=== PATIENT | female | born 1985 | race Caucasian/White ===

== ENCOUNTER 2016-09-06 18:12 | Emergency (ER) | payer SELFPAY ==
[~2016-09-06] VITALS: Ht 157.5 cm; Wt 74.5 kg
[~2016-09-06 18:12] MED LIST: FOLI-49 PO; PREN1TAB49 PO
[2016-09-06 18:19] VITALS: Ht 157.5 cm; Wt 74.5 kg
[2016-09-06] MEDS ORDERED: IBUPROFEN 600 MG TAB PO ONE (20:00)
[2016-09-06] MEDS ORDERED: DIAZEPAM 5 MG TAB PO ONE (20:00)
[2016-09-06 20:01] LABS: URINE BLOOD (Dip) POC 3+ (NEGATIVE)
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
[2016-09-06] MEDS ORDERED: IBUP-1542 PO (21:32)
[2016-09-06] MEDS ORDERED: NITR-58 PO (21:33)
[2016-09-06] MEDS ORDERED: DIAZ-90 PO (21:33)
[2016-09-06 21:42] VITALS: BP 135/68; PULSE 77; RESP 18
[2016-09-06 22:11] LABS: ADD UMIC YES; URINE BILIRUBIN (Dip) NEGATIVE (NEGATIVE); URINE BLOOD (Dip) 3+ (NEGATIVE); URINE GLUCOSE (Dip) NEGATIVE (NEGATIVE); URINE KETONES (Dip) TRACE (NEGATIVE); URINE LEUKOCYTE ESTERASE (Dip) TRACE (NEGATIVE); URINE NITRITE (Dip) NEGATIVE (NEGATIVE); URINE TOTAL PROTEIN (Dip) 2+ (NEGATIVE); URINE UROBILINOGEN (Dip) 1.0 E.U./dL (0.1-1.0)
[2016-09-06 22:17] LABS: URINE COLOR RED (YELLOW)
[2016-09-06 22:20] LABS: URINE RBCS >200 /HPF (0)
== END 2016-09-06 21:45 | disposition home or self-care (01) ==
LOC: FTE 18:12
DX: S16.1XXA Strain of muscle, fascia and tendon at neck level, initial encounter (principal); R07.9 Chest pain, unspecified; R10.9 Unspecified abdominal pain; V49.50XA Passenger injured in collision with unspecified motor vehicles in traffic accident, initial encounter
CPT/HCPCS: 71020; 76705; 81001; 81003; 87086